=== PATIENT | female | born 1990 | race Caucasian/White ===

== ENCOUNTER 2024-10-23 19:59 | Emergency (ER) | payer SELFPAY ==
[2024-10-23] MEDS ORDERED: HYDROCODONE/APAP 7.5/325 MG TAB ONE (20:55)
[2024-10-23] MEDS ORDERED: IBUPROFEN 400 MG TAB ONE (20:56)
--- NOTE | 2024-10-23 21:27 | RAD REPORT ---
EXAMINATION: Ankle Right 3 View CLINICAL INDICATION: Female, 34 years old. PAIN COMPARISON: No prior exam. FINDINGS: No definite fracture. Small cortical step-off at the medial malleolus. Prominent lateral soft tissue swelling. No malalignment/dislocation. Dorsal aspect calcaneal spur. Other: n/a IMPRESSION: No definite fracture. Prominent lateral soft tissue swelling without subjacent fracture or malalignme nt. Cortical regularity at the medial malleolus is equivocal for a nondisplaced fracture.
[2024-10-23] MEDS ORDERED: MORPHINE 4 MG/ML SYR ONE (21:58)
--- NOTE | 2024-10-23 22:32 | EDPHYS ---
Physician Documentation [facility] Name: Kacey Evangelista Age: 34 yrs Sex: Female : 1990 Arrival Date: 10/23/2024 Time: 19:59 Bed 12 Private MD: ED Physician Jose C Carter HPI: 10/23 21:00 This 34 yrs old Female presents to ER via Wheelchair with complaints of Ankle Injury, cp Foot Pain, Ankle Swelling. 21:00 The patient presents with an injury, pain, that is acute, swelling, tenderness. The cp complaints affect the right ankle. Onset: The symptoms/episode began/occurred just prior to arrival. 21:00 Associated signs and symptoms: Pertinent negatives: calf tenderness, numbness. cp 21:00 Context: resulted from a mis-step by the patient, getting out of truck, The patient is cp unable to bear weight. must have assistance. [employer]: 20:40 LMP 10/23/2024, unknown lg3 Historical: - Allergies: 20:40 NKDA; lg3 - Home Meds: 20:40 None [Active]; lg3 - PMHx: 20:40 None; lg3 - PSHx: 20:40 Lithotripsy; lg3 - Immunization history:: Adult Immunizations. - Infectious Disease History:: Denies. - Social history:: Smoking status: Patient denies any tobacco usage or history of. Patient uses alcohol, only on a social basis. ROS: 21:05 MS/extremity: Positive for decreased range of motion, pain, swelling, tenderness, of cp the right ankle, 21:05 Constitutional: Negative for body aches, chills, fever, cp 21:05 Neck: Negative for pain with movement, pain at rest, stiffness, 21:05 Cardiovascular: Negative for chest pain, 21:05 Respiratory: Negative for cough, shortness of breath, wheezing, 21:05 Abdomen/GI: Negative for abdominal pain, 21:05 Back: Negative for pain at rest, pain with movement, 21:05 All other systems are negative, Exam: 21:10 Constitutional: The patient appears in no acute distress, alert, awake, well developed, cp well nourished, overweight 21:10 Head/Face: Normocephalic, atraumatic. cp 21:10 Chest/axilla: Inspection: normal, 21:10 Cardiovascular: Rate: normal, Pulses: Pulses are 2+ in right dorsalis pedis artery. 21:10 Respiratory: the patient does not display signs of respiratory distress, Respirations: normal, no use of accessory muscles, no retractions, labored breathing, is not present, 21:10 Abdomen/GI: Inspection: abdomen appears normal, 21:10 Back: pain, is absent, 21:10 Musculoskeletal/extremity: Extremities: noted in the right ankle: marked swelling and tenderness of right lateral malleolus, ROM: limited passive range of motion due to pain, in the right ankle, Perfusion: the extremity is normally perfused throughout, Severe pain noted. Weight bearing: is unable to bear weight, 21:10 Neuro: Orientation: to person, place \T\ time. Mentation: is normal, Vital Signs: 20:39 BP 118 / 61; Pulse 86; Resp 16 S; Temp 98.4(O); Pulse Ox 99% on R/A; Weight 68.04 kg lg3 (R); Height 4 ft. 11 in. (R); Pain 8/10; 20:39 Body Mass Index 30.30 (68.04 kg, 149.86 cm) lg3 20:39 Pain Scale: Adult lg3 Procedures: 23:00 Splinting: Splint applied to right ankle using Orthoglass splint, posterior short leg cp and stirrup. applied by nurse. Examined by me, post splint application: neurovascular intact, Patient tolerated well. MDM: 20:45 Medical Screening Exam initiated cp 21:00 Differential diagnosis: fracture, sprain, dislocation. cp 22:31 Data reviewed: vital signs, nurses notes, radiologic studies, plain films, and as a cp result, I will discharge patient. 22:31 I considered the following discharge prescriptions or medication management in the emergency department Medications were administered in the Emergency Department. See MAR. Counseling: I had a detailed discussion with the patient and/or guardian regarding the historical points, exam findings, and any diagnostic results supporting the discharge/admit diagnosis, radiology results, the need for outpatient follow up, a orthopedic surgeon, to return to the emergency department if symptoms worsen or persist or if there are any questions or concerns that arise at home. Response to treatment: the patient's symptoms have mildly improved after treatment, and as a result, I will discharge patient. 10/23 20:43 Order name: XRAY Ankle RIGHT 3 view; Complete Time: 22:06 lg3 10/23 22:07 Interpretation: Report reviewed. cp 10/23 20:55 Order name: Ice pack; Complete Time: 20:56 cp 10/23 21:32 Order name: Crutches; Complete Time: 22:14 cp 10/23 21:33 Order name: Splint Leg: Short Leg; Complete Time: 22:14 cp Administered Medications: 21:03 Drug: Hydrocodone-Acetaminophen PO (7.5 mg-325 mg) 1 tabs PO once; RASS on ADMIN: br2 Combtv4, Very Agttd3, Agttd2, Rstlss1, AlertClm0, Drwsy-1, Lt Sdtn-2, Mod Sdtn-3, Dp Sdtn-4, UnArsble-5 Route: PO; 22:14 Follow up: Response: No adverse reaction; Pain is decreased kl 21:04 Drug: Ibuprofen PO 800 mg PO once Route: PO; br2 22:15 Follow up: Response: No adverse reaction; Pain is decreased kl 22:00 Drug: morphine IM 4 mg IM once Route: IM; Site: right deltoid; kl 22:55 Follow up: Response: No adverse reaction br2 Disposition: 22:40 I agree with the assessment and plan of care. ec2 10/24 18:05 Chart complete. cp Disposition Summary: 10/23/24 22:32 Discharge Ordered Notes: Location: Home cp Problem: new cp Symptoms: have improved cp Condition: Stable cp Diagnosis - Pain in right ankle and joints of right foot cp Followup: cp - With: Saud Anaya MD - When: 5 - 6 days - Reason: Recheck today's complaints Discharge Instructions: - Ankle Pain cp - Discharge Summary Sheet ec2 Forms: - Medication Reconciliation Form cp - Antibiotic Education cp - Prescription Opioid Use cp - Patient Portal Instructions cp - Leadership Thank You Letter cp Prescriptions: - Ibuprofen 800 mg Oral Tablet - take 1 tablet ORAL route every 8 hours As needed take with food; 30 tablet; cp Refills: 0, Product Selection Permitted - acetaminophen-codeine 300-30 mg Oral tablet - take 1 tablet ORAL route every 8 hours; 15 tablet; Refills: 0, Product ec2 Selection Permitted Addendum: 10/25/2024 05:14 I was immediately available for consultation during this patient's visit. I did not e c2 personally see the patient or discuss the patient with the SELAM. . Signatures: Dispatcher [employer] Renuka Holden, RN RN Danie Strickland PA PA cp Able, Lacie, RN RN lg3 Jsoe C Carter MD MD ec2 Beryl Minaya RN RN br2
--- NOTE | 2024-10-23 22:32 | ER ---
Nurse's Notes [facility] Name: Kacey Evangelista Age: 34 yrs Sex: Female : 1990 Arrival Date: 10/23/2024 Time: 19:59 Bed 12 Private MD: Diagnosis: Pain in right ankle and joints of right foot Presentation: 10/23 20:39 Chief complaint: Patient states: pain and swelling to right ankle after stepping out of lg3 truck wrong. Coronavirus screen: Client denies travel out of the [place] in the last 14 days. At this time, the client does not indicate any symptoms associated with coronavirus-19. Ebola Screen: No symptoms or risks identified at this time. Initial Sepsis Screen: Does the patient meet any 2 criteria? No. Patient's initial sepsis screen is negative. Does the patient have a suspected source of infection? No. Patient's initial sepsis screen is negative. Risk Assessment: Do you want to hurt yourself or someone else? Patient reports no desire to harm self or others. Onset of symptoms was October 23, 2024. 20:39 Method Of Arrival: Wheelchair lg3 20:39 Acuity: KEVIN 4 lg3 Triage Assessment: 20:40 General: Appears in no apparent distress. uncomfortable, Behavior is calm, cooperative. lg3 Pain: Complains of pain in right foot. EENT: No deficits noted. No signs and/or symptoms were reported regarding the EENT system. Neuro: No deficits noted. [place]alloway Agitation-Sedation Scale (RASS): 0 - Alert and Calm Level of Consciousness is awake, alert, obeys commands, Oriented to person, place, time, situation. Cardiovascular: No deficits noted. Denies chest pain, shortness of breath, Capillary refill < 3 seconds Clubbing of nail beds is absent JVD is absent Patient's skin is warm and dry. Respiratory: No deficits noted. Airway is patent Respiratory effort is even, unlabored, Respiratory pattern is regular, symmetrical. GI: No deficits noted. No signs and/or symptoms were reported involving the gastrointestinal system. : No signs and/or symptoms were reported regarding the genitourinary system. Derm: No deficits noted. Skin is intact, is healthy with good turgor, Skin is dry, Skin is normal, Skin temperature is warm. Musculoskeletal: Circulation, motion, and sensation intact. Range of motion: intact in all extremities, Swelling present in right lateral malleolus Reports pain in right lateral malleolus. 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 - Infectious Disease History:: Denies. - Social history:: Smoking status: Patient denies any tobacco usage or history of. Patient uses alcohol, only on a social basis. Screenin:00 [facility] ED Fall Risk Assessment (Adult) History of falling in the last 3 months, br2 including since admission Yes- single mechanical fall (1 pt) Confusion or Disorientation No (0 pts) Intoxicated or Sedated No (0 pts) Impaired Gait No (0 pts) Mobility Assist Device Used No (0 pt) Altered Elimination No (0 pt) Score/Fall Risk Level 0 - 2 = Low Risk Oriented to surroundings. Abuse screen: Denies threats or abuse. Denies injuries from another. Nutritional screening: No deficits noted. Tuberculosis screening: No symptoms or risk factors identified. Vital Signs: 20:39 BP 118 / 61; Pulse 86; Resp 16 S; Temp 98.4(O); Pulse Ox 99% on R/A; Weight 68.04 kg lg3 (R); Height 4 ft. 11 in. (R); Pain 8/10; 20:39 Body Mass Index 30.30 (68.04 kg, 149.86 cm) lg3 20:39 Pain Scale: Adult lg3 ED Course: 20:03 Patient arrived in ED. gm2 20:06 Danie Blank PA is PHCP. cp 20:06 Jose C Catrer MD is Attending Physician. cp 20:40 Triage completed. lg3 20:40 Arm band placed on right wrist. lg3 21:04 XRAY Ankle RIGHT 3 view In Process Unspecified. EDMS 22:00 Patient has correct armband on for positive identification. Bed in low position. Call br2 light in reach. Provided Education on: PLAN OF CARE. 22:00 No provider procedures requiring assistance completed. Patient did not have IV access br2 during this emergency room visit. 22:26 Orthoglass splint: Posterior short lleg splint applied on stirrup splint applied on br2 right leg. 22:31 Saud Anaya MD is Referral Physician. cp 22:50 Beryl Minaya, RN is Primary Nurse. br2 Administered Medications: 21:03 Drug: Hydrocodone-Acetaminophen PO (7.5 mg-325 mg) 1 tabs PO once; RASS on ADMIN: br2 Combtv4, Very Agttd3, Agttd2, Rstlss1, AlertClm0, Drwsy-1, Lt Sdtn-2, Mod Sdtn-3, Dp Sdtn-4, UnArsble-5 Route: PO; 22:14 Follow up: Response: No adverse reaction; Pain is decreased kl 21:04 Drug: Ibuprofen PO 800 mg PO once Route: PO; br2 22:15 Follow up: Response: No adverse reaction; Pain is decreased kl 22:00 Drug: morphine IM 4 mg IM once Route: IM; Site: right deltoid; kl 22:55 Follow up: Response: No adverse reaction br2 Outcome: 22:00 Discharged to home via wheelchair, with crutches, br2 22:00 Condition: stable 22:00 Discharge instructions given to patient, Instructed on discharge instructions, follow up and referral plans. Demonstrated understanding of instructions, follow-up care, medications, Prescriptions given X 2, 22:32 Discharge ordered by . cp 22:55 Patient left the ED. br2 Signatures: Dispatcher [employer] EDMS Renuka Goodman RN RN kl Page, Corey, PA PA Rowan Olivas RN RN lg3 Trinity Ford 2 Beryl Minaya RN RN br2
[2024-10-24 02:15] VITALS: BP 118/61; TEMP 98.4; O2SAT 99
== END 2024-10-23 22:55 | disposition home or self-care (01) ==
LOC: ER 19:59
PROC: 2W3SX1Z Immobilization of Right Foot using Splint (ICD-10-PCS; principal; 2024-10-23)
DX: M25.571 Pain in right ankle and joints of right foot (principal)
CPT/HCPCS: 96372; 99284